=== PATIENT | female | born 1945 | race Caucasian/White ===

== ENCOUNTER 2019-02-01 16:45 | Inpatient (IN) | payer OTHER ==
[~2019-02-01] VITALS: Ht 172.7 cm; Wt 54.2 kg
[2019-02-01] MEDS ORDERED: CYMBALTA60 MG PO (16:54)
[2019-02-01] MEDS ORDERED: PROTONIX 20 MG20 MG PO (16:54)
[2019-02-01] MEDS ORDERED: BUSPIRONE HCL5 MG PO (16:54)
[2019-02-01] MEDS ORDERED: PRAVASTATIN SOD20 MG PO (16:55)
[2019-02-01 17:26] LABS: ABSOLUTE NEUTROPHILS 9.3 thou/uL (1.4-8.2); BASOPHILS 0.3 % (0.0-2.0); EOSINOPHILS 1.1 % (0.0-3.0); HEMATOCRIT 32.6 % (37.0-47.0); HEMOGLOBIN 11.2 gm/dL (12.0-15.0); LYMPHOCYTES 12.3 % (24.0-44.0); MCH 32.1 pg (26.0-34.0); MCHC 34.4 g/dL (28.0-37.0); MCV 93.5 fL (80.0-100.0); MONOCYTES 5.2 % (1.0-8.0); PLATELET COUNT 191 thou/uL (150-400); POLYS 81.1 % (36.0-66.0); RBC 3.49 mil/uL (4.20-5.00); WBC 11.5 thou/uL (4.0-11.0)
[2019-02-01 17:40] LABS: ALBUMIN 2.4 g/dL (3.4-5.0); ANION GAP 8 mmol/L (7-16); BUN 5 mg/dL (7-18); CALCIUM 8.3 mg/dL (8.5-10.1); CHLORIDE 87 mmol/L (98-107); CO2 32 mmol/L (21-32); CREATININE 0.6 mg/dL (0.6-1.0); GLUCOSE 124 mg/dL (74-106); LIPASE 96 U/L (73-393); MAGNESIUM 1.1 mg/dL (1.8-2.4); SGOT 37 U/L (15-37); SGPT 14 U/L (30-65); SODIUM 127 mmol/L (136-145); TOTAL BILIRUBIN 2.1 mg/dL (<0.1-1.0); TOTAL PROTEIN 6.8 g/dL (6.4-8.2); TROPONIN-I <0.06 ng/mL (<0.06)
[2019-02-01 17:44] LABS: POTASSIUM 2.1 mmol/L (3.5-5.1)
[2019-02-01 18:17] LABS: SALICYLATE 3.4 mg/dL (2.8-20.0)
[2019-02-01 18:18] LABS: URINE BILIRUBIN NEGATIVE (Negative); URINE BLOOD 3+ (Negative); URINE CLARITY CLEAR; URINE COLOR YELLOW; URINE GLUCOSE-RANDOM* NEGATIVE (Negative); URINE KETONES TRACE (Negative); URINE NITRITE-REFLEX NEGATIVE (Negative); URINE PROTEIN (DIPSTICK) TRACE (Negative); URINE UROBILINOGEN >= 8.0 E.U./dl (0.2-1.0)
[2019-02-01 18:24] LABS: URINE LEUKOCYTES-REFLEX 3+ (Negative)
[2019-02-01 18:26] LABS: AMP/METHAMP Negative (Negative); BARBITURATES Negative (Negative); BENZODIAZEPINES Negative (Negative); COCAINE Negative (Negative); METHADONE Negative (Negative); OPIATES Negative (Negative); PCP Negative (Negative)
[2019-02-01 18:32] LABS: BACTERIA-REFLEX 1-9 Few /HPF (None Seen); CASTS None Seen /LPF (None Seen); SQUAMOUS >10 Many /LPF (0-3); URINE RBC >20 Many /HPF (0-2); URINE WBC-REFLEX >25 Many /HPF (0-5)
[2019-02-01 18:33] LABS: AMORPHOUS URATES Many /LPF (None Seen); WBC CLUMPS Moderate (None Seen)
[2019-02-01 22:27] VITALS: BP 102/46
[2019-02-01 22:46] VITALS: BP 102/46
[2019-02-01 22:48] LABS: PHOSPHORUS 2.7 mg/dL (2.5-4.9)
[2019-02-01 22:51] LABS: FOLIC ACID 14.6 ng/mL (8.6-58.9)
--- NOTE | 2019-02-02 01:59 | NUR ---
PATIENT IS ALERT TO SELF PLACE TIME. PATIENT IS CIWA. PAITENT ON ROOM AIR. PATIENT IS INCONTIENT. PATIENT DENIES PAIN. PATIENT REPLACING ELETROLYTES. PATIENT IS RESTING COMFORTABLY IN BED. WCM. PATIENT IS PROGRESSING TO GOALS.
[2019-02-02 04:34] VITALS: BP 101/54
[2019-02-02 05:48] LABS: HEMATOCRIT 27.1 % (37.0-47.0); HEMOGLOBIN 9.4 gm/dL (12.0-15.0); MCHC 34.4 g/dL (28.0-37.0); MCV 95.8 fL (80.0-100.0); RBC 2.83 mil/uL (4.20-5.00); WBC 11.4 thou/uL (4.0-11.0)
[2019-02-02 05:55] LABS: CALCIUM 7.8 mg/dL (8.5-10.1); CREATININE 0.5 mg/dL (0.6-1.0)
[2019-02-02 05:57] LABS: POTASSIUM 2.4 mmol/L (3.5-5.1)
[2019-02-02 08:17] VITALS: BP 105/57
--- NOTE | 2019-02-02 09:46 | EKG ---
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
[2019-02-02 14:13] LABS: % SATURATION 88 % (20-39); IRON 82 ug/dL (50-170); TIBC 93 ug/dL (250-450)
[2019-02-02 14:17] LABS: PROTIME 10.2 Seconds (9.3-11.4)
[2019-02-02 15:40] VITALS: BP 99/51
--- NOTE | 2019-02-02 16:07 | NUR ---
ASSESSMENT: CM REVIEWED CHART. PT WAS ADMITTED WITH AMS. 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 IT WAS REPORTED THAT PATIENT DRINKS ABOUT A BOTTLE OF VODKA PER DAY. CM SPOKE WITH PTS ABILIOOA MARKIE WOODARD. SHE STATES PATIENT LIVES IN AN APT ALONE BUT MARKIE GOES OVER THE DAILY IF NOT MULTIPLE TIMES AND HAS OTHERS THAT GO WELL ABOUT 3X/DAY FOR 2 HRS A PIECE SO SHE STATES PATIENT IS NEVER HARDLY ALONE. SHE REPORTS PATIENT USES HER WHEELCHAIR AND NEVER REALLY LEAVES HER CHAIR AND THEY HELP ASSIST HER BECAUSE SHE IS SCARED SHE WILL FALL. SHE REPORTS PATIENT WEARS DEPENDS AND THEY HELP CHANGE HER/ASSIST WITH ADLS. PT HAS BEEN TO MULTIPLE SNF IN THE PAST SHE REPORTS INCLUDING [facility], [facility], AND [place] [facility] SHE STATES PATIENT IS NOT ALWAYS COMPLIANT AT FACILITIES AND HAS HAD HH IN THE PAST BUT NOT COMPLIANT WITH THEM AND USUALLY DOES NOT WANT THEM TO COME. CM DISCUSSED ROLE. DPOA FEELS PATIENT WOULD LIKELY BENEFIT FROM SNF STAY AND REPORTS PT IS USUALLY AGREEABLE FOR SNF. CM WILL CONTINUE TO FOLLOW AND SEE HOW PATIENT PROGRESSES THROUGH THE WEEKEND AND IF AMS CLEARS UP. CM WILL CONTIUNE TO FOLLOW.
[2019-02-02 16:46] LABS: ALBUMIN 1.9 g/dL (3.4-5.0); DIRECT BILIRUBIN 1.8 mg/dL (<0.1-0.3); TOTAL BILIRUBIN 2.1 mg/dL (<0.1-1.0); TOTAL PROTEIN 5.5 g/dL (6.4-8.2)
--- NOTE | 2019-02-02 18:36 | NUR ---
PATIENT CONT TO REST IN BED AT TIS TIME. RESPIRATIONS ARE NON LABORED. PLEASANT AND COOPERATIVE WITH CARE. INCONT. KEPT CLEAN AND DRY. WILL CONT WIHT PLAN OF CARE.
[2019-02-02 19:27] VITALS: BP 93/48
[2019-02-03 00:07] LABS: HAV IgM AB (ANTI-HAV IgM) Negative (Negative); HEPATITIS B SURFACE AG Negative (Negative); HEPATITIS C VIRUS AB 0.1 (0.0-0.9)
--- NOTE | 2019-02-03 02:07 | NUR ---
PATIENT IS ALERT TO SELF. PATIENT IS CONFUSED. PATIENT IS INCONTIENT. PATIENT YELLS OUT UNABLE TO USE CALL LIGHT. PATIENT IS PENDING PLACEMENT. PATIENT IS ROOM AIR. PATIENT DENIES PAIN. PATIENTS LBM WAS 6TH. PATIENT IS RESTING COMFORTABLY IN BED. PATIENT CAN TURN SELF. PATIENT IS PROGRESSING TO GOALS. WCM
[2019-02-03 05:04] VITALS: BP 98/47
[2019-02-03 06:39] LABS: CALCIUM 7.8 mg/dL (8.5-10.1); CREATININE 0.7 mg/dL (0.6-1.0); MAGNESIUM 1.7 mg/dL (1.8-2.4); PHOSPHORUS 1.4 mg/dL (2.5-4.9); POTASSIUM 3.1 mmol/L (3.5-5.1)
[2019-02-03 09:37] VITALS: BP 103/50
[2019-02-03 15:56] VITALS: BP 111/58
--- NOTE | 2019-02-03 17:30 | NUR ---
ALERT TO PERSON, CIWA 0-1, PREVIOUSLY CONFUSED TO DAY OF WEEK, YEAR. PT FEELING MILDLY ANXIOUS & REQUESTING CIGARETTE. NICOTINE PATCH REMAINS INTACT. SR, ROOM AIR, FEEDING SELF AND ALLOWS ASSIST WITH FEEDING, LARGE LOOSE STOOL THIS AM, INCONTINENT OF LARGE AMOUNTS DARK YELLOW URINE. DR. NEGRETE NOTIFIED OF ABNORMAL ELECTROLYTES- LOW K AND MAG. ELECTROLYTES REPLACED PER MED ORDERS.
[2019-02-03 19:00] VITALS: BP 100/53
[2019-02-04 03:26] VITALS: BP 141/79
[2019-02-04 05:20] LABS: HEMATOCRIT 27.7 % (37.0-47.0); HEMOGLOBIN 9.3 gm/dL (12.0-15.0); MCH 32.5 pg (26.0-34.0); MCHC 33.4 g/dL (28.0-37.0); MCV 97.3 fL (80.0-100.0); RBC 2.85 mil/uL (4.20-5.00); RDW 13.3 % (10.5-14.5)
[2019-02-04 05:46] LABS: ALBUMIN 1.9 g/dL (3.4-5.0); CALCIUM 8.4 mg/dL (8.5-10.1); CREATININE 0.7 mg/dL (0.6-1.0); MAGNESIUM 1.6 mg/dL (1.8-2.4); PHOSPHORUS 2.6 mg/dL (2.5-4.9); POTASSIUM 3.1 mmol/L (3.5-5.1); TOTAL BILIRUBIN 0.7 mg/dL (<0.1-1.0); TOTAL PROTEIN 5.2 g/dL (6.4-8.2)
--- NOTE | 2019-02-04 06:37 | NUR ---
PT A/0 X1. PT HAS SOME CONFUSION AND RESIDULES FROM PREVIOUS STROKE. Q8 CIWA'S. PT HAS BEEN INCONTINENT FOR BOTH BLADDER AND BOWEL. PLACED EXTERNAL FEMALE CATH TO REDUCE SKIN ISSUES. AT 0315 PT HEART ELEVATED, CALL PLACED TO SEGUN GELLER, RECEIVED ORDERS FOR EKG. EKG SHOWED SINUS TACH. RECEIVED ORDERS FOR 2.5MG METOPROLOL. GOOD RESULTS WITH HR DOWN BELOW 100 BPM. HOURLY ROUNDING.
[2019-02-04 07:35] VITALS: BP 120/63
--- NOTE | 2019-02-04 11:22 | EKG ---
[address] [address] ELECTROCARDIOGRAM REPORT Name: REBECAC LAZO Room #: 361-P ADM IN M.R.#: [id number] Admission: 02/01/19 Attend Phys: Earle Back MD Discharge: Date of : 45 Report #: [id number] THIS REPORT FOR: //name// [facility] Test Date: 2019-02-04 Test Time: 03:18:10 Pat Name: REBECCA LAZO Department: Room: 361 Gender: F [employer] Spacelift: [id number] : 1945 Requested By: Carolyn Singh Order Number: [id number] MD: Good Abdullahi Measurements Intervals [place] Rate: 139 P: 109 [place]: 92 QRS: -8 QRSD: 137 T: 31 QT: 328 QTc: 499 Interpretive Statements Sinus tachycardia Right bundle branch block Inferior infarct, old Compared to ECG 02/01/2019 17:33:13 Sinus rhythm no longer present Myocardial infarct finding still present Electronically Signed On 02-04-2019 11:22:03 PATENT SOLICITOR by Good Abdullahi [email or web address] <ELECTRONICALLY SIGNED> By: Good Abdullahi MD 02/04/19 1122 Good Abdullahi MD /EPI
[2019-02-04 15:37] VITALS: BP 127/70
--- NOTE | 2019-02-04 17:32 | NUR ---
pt knows her name , pt can follow some commands, pt is confused at time, pt is continuing iv abx , iv fluid and potassuim and magnesium replacement, pt's vs are stable at this time, pt needs help ADL and change position.
[2019-02-04 18:08] LABS: MITOCHONDRIAL ANTIBODY <20.0 Units (0.0-20.0); SMOOTH MUSCLE ANTIBODY 35 Units (0-19)
[2019-02-04 19:09] VITALS: BP 119/61
[2019-02-05 03:37] VITALS: BP 129/67
[2019-02-05 05:21] LABS: ABSOLUTE NEUTROPHILS 9.9 thou/uL (1.4-8.2); BASOPHILS 0.6 % (0.0-2.0); EOSINOPHILS 3.1 % (0.0-3.0); HEMATOCRIT 28.1 % (37.0-47.0); HEMOGLOBIN 9.4 gm/dL (12.0-15.0); LYMPHOCYTES 12.2 % (24.0-44.0); MCH 32.6 pg (26.0-34.0); MCHC 33.4 g/dL (28.0-37.0); MCV 97.6 fL (80.0-100.0); MONOCYTES 4.9 % (1.0-8.0); PLATELET COUNT 220 thou/uL (150-400); POLYS 79.2 % (36.0-66.0); RBC 2.87 mil/uL (4.20-5.00); RDW 13.7 % (10.5-14.5); WBC 12.5 thou/uL (4.0-11.0)
[2019-02-05 05:26] LABS: ALBUMIN 1.9 g/dL (3.4-5.0); CALCIUM 7.8 mg/dL (8.5-10.1); CREATININE 0.6 mg/dL (0.6-1.0); MAGNESIUM 1.6 mg/dL (1.8-2.4); POTASSIUM 3.2 mmol/L (3.5-5.1); TOTAL BILIRUBIN 0.5 mg/dL (<0.1-1.0); TOTAL PROTEIN 5.7 g/dL (6.4-8.2)
--- NOTE | 2019-02-05 06:27 | NUR ---
PT A/0 TO SELF. PT UNDERSTANDS SHE IS HUNGRY BUT HAS NO CONCEPT FOR TIME, GAVE PT MULTIPLE CRACKERS AND CHIPS WHICH SHE CAN FEED HER SELF. SHE YELLS OUT FREQUENTLY WANTING TO BE PULLED UP IN BED WHEN SHE IS ALREADY AT THE MAX DISTANCE BEFORE HAVING HER HEAD HANG OVER THE TOP EDGE. URINE OUTPUT WAS 1600+ VIA EXTERNAL CATH. PT TAKES PILLS WHOLE. VSS, AND NO ISSUES WITH HEART RATE OVERNIGHT. HOURLY ROUNDING.
[2019-02-05 07:54] VITALS: BP 132/75
--- NOTE | 2019-02-05 12:52 | NUR ---
pt is confused , but pt knows her name and she can follow some conmmands, pt is continuing iv fluid and iv abx , she needs help ADL and meals, we encourage pt to eat and drink, pt's vs are stable at this time.
[2019-02-05 13:07] LABS: CERULOPLASMIN 24.9 mg/dL (19.0-39.0)
[2019-02-05 15:37] VITALS: BP 117/64
--- NOTE | 2019-02-05 15:51 | NUR ---
RN has caled to report pt's abnormal LAB results, new order received, pt has kcl 40meq and magenesium sulfate 4g iv running over 4 HR for low potassium and low magnesium.
--- NOTE | 2019-02-05 16:01 | NUR ---
ON-GOING ASSESSMENT: CM REVIEWED CHART AND MET WITH PATIENT AT THE BEDSIDE. PT STILL APPEARS ENCEPHALOPATHIC. CM DISCUSSED SNF WITH PATIENT AND SHE STATED SHE DID NOT REALLY WANT TO GO. CM REACHED OUT TO PATIENTS DPOA DUE TO PATIENTS CONFUSION AND DISCUSSED SNF AND SHE STATES PATIENT WOULD BENEFIT FROM IT. SHE WANTED REFERRAL SENT TO [facility] WHERE SHE HAD BEEN BEFORE. CM FAXED REFERRALS AND WAITING TO HEAR BACK.
[2019-02-05 19:31] VITALS: BP 129/71
[2019-02-06 03:48] VITALS: BP 102/60
--- NOTE | 2019-02-06 04:53 | NUR ---
RESTING BETTER TONIGHT.SHE DRINKS WATER VERY WELL. DENIES PAIN. YELLS WHEN SHE SEES ANYONE GO PAST HER DOOR. CAREPLAN REVIEWED.
[2019-02-06 06:05] LABS: CALCIUM 8.5 mg/dL (8.5-10.1); CREATININE 0.6 mg/dL (0.6-1.0); MAGNESIUM 2.2 mg/dL (1.8-2.4); POTASSIUM 4.3 mmol/L (3.5-5.1)
[2019-02-06 07:15] VITALS: BP 126/71
--- NOTE | 2019-02-06 10:21 | NUR ---
ON-GOING ASSESSMENT: CM ATTEMPTED TO FOLLOW UP WITH [facility] THIS AM BUT HAVE NO RECEIVED A RESPONSE AT THIS TIME. CM SPOKE WITH AIDE [facility] WHO STATES THEY CANNOT ACCEPT PT AT THIS TIME DUE TO ALCOHOL ABUSE. CM FAXED REFERRAL TO [facility] FOR [facility] TO REVIEW ([facility] HAS NO PREFERENCE AT THIS TIME).
--- NOTE | 2019-02-06 13:05 | NUR ---
pt's assessment has done , PT knows her name, pt can follow some conmmands, but pt is confused, pt is continuing iv fluid, PT's lab results have improved, pt's potassium and magnesium results are normal today, pt's vs are stable, pt needs help meals and ADL.
[2019-02-06 15:45] VITALS: BP 122/63
--- NOTE | 2019-02-06 15:53 | NUR ---
on-going assessment: [facility] CAME TO DO ON-SITE EVAL WITH PATIENT AND SPOKE TO PATIENTS DPOA AND THEY WILL ACCEPT THE PATIENT FOR SNF. NOMAN NOTIFIED ATTENDING AND HE STATES HE WILL BE BACK AT THE HOSPITAL THIS EVENING AND CAN PUT IN DISCHARGE ORDERS THEN FOR A LATER DISCHARGE. CM NOTIFIED BEDSIDE RN. CM ORDERED CHART COPY. CONTACT FOR [facility] FOR REPORT:[phone], ALSO PLEASE FAX DISCHARGE ORDERS TO [facility] FAX:[phone]. CM NOTIFIED CARLOSJAY MCKEONA THAT PATIENT WILL HAVE ORDERS THIS EVENING AND WILL NEED STRETCHER FOR TRANSPORTATION. SHE IS ARRANGING TRANSPORT FOR AROUND 1830. CM NOTIFIED BEDSIDE RN WELL PATIENTS DPOA.
[2019-02-06] MEDS ORDERED: LACTULOSE20 GM/30 M PO (16:53)
[2019-02-06] MEDS ORDERED: VITAMIN B-1100 M2 PO (16:53)
[2019-02-06] MEDS ORDERED: MAGOX 400400 MG PO (16:53)
[2019-02-06] MEDS ORDERED: POTASSIUM20 PO (16:53)
[2019-02-06] MEDS ORDERED: PHOSPHA 250 NE250 MG PO (16:53)
[2019-02-06] MEDS ORDERED: CEFUROXIME250 MG PO (16:53)
[2019-02-06] MEDS ORDERED: PRENATAL PO (16:53)
--- NOTE | 2019-02-06 17:39 | NUR ---
RN has received order , pt will DC TO [facility] today,RN has giving report , pt's family has notifed pt's discharge today. pt's vs are stable at this time.
== END 2019-02-06 18:53 | DRG 432 ==
LOC: ER 16:45 → EROBS 20:23 → 3W 20:23
PROVIDERS: Nurse Practitioner; Nurse Practitioner Family; Physician Assistant; Specialist; ADMIT Internal Medicine
DX: K70.40 Alcoholic hepatic failure without coma (principal); G92 Toxic encephalopathy; E43 Unspecified severe protein-calorie malnutrition; N39.0 Urinary tract infection, site not specified; E87.1 Hypo-osmolality and hyponatremia; F10.239 Alcohol dependence with withdrawal, unspecified; Z68.1 Body mass index [BMI] 19.9 or less, adult; E51.2 Wernicke's encephalopathy; K70.0 Alcoholic fatty liver; E87.6 Hypokalemia; F17.210 Nicotine dependence, cigarettes, uncomplicated; G31.2 Degeneration of nervous system due to alcohol; I45.10 Unspecified right bundle-branch block; E83.42 Hypomagnesemia; F41.9 Anxiety disorder, unspecified; R79.89 Other specified abnormal findings of blood chemistry; E78.5 Hyperlipidemia, unspecified; F32.9 Major depressive disorder, single episode, unspecified; K21.9 Gastro-esophageal reflux disease without esophagitis; B96.20 Unspecified Escherichia coli [E. coli] as the cause of diseases classified elsewhere; Z88.8 Allergy status to other drugs, medicaments and biological substances; I25.2 Old myocardial infarction; Z86.73 Personal history of transient ischemic attack (TIA), and cerebral infarction without residual deficits; Z79.899 Other long term (current) drug therapy
CPT/HCPCS: 10080; 10879

== ENCOUNTER 2020-05-23 10:08 | Emergency (ER) | payer OTHER ==
[~2020-05-23] VITALS: Ht 160 cm; Wt 68.0 kg
[~2020-05-23 10:08] MED LIST: BUSPIRONE HCL5 MG PO; CEFUROXIME250 MG PO; CYMBALTA60 MG PO; LACTULOSE20 GM/30 M PO; MAGOX 400400 MG PO; PHOSPHA 250 NE250 MG PO; POTASSIUM20 PO; PRAVASTATIN SOD20 MG PO; PRENATAL PO; PROTONIX 20 MG20 MG PO; VITAMIN B-1100 M2 PO
[2020-05-23 10:39] LABS: ABSOLUTE NEUTROPHILS 2.9 thou/uL (1.4-8.2); BASOPHILS 1.4 % (0.0-2.0); EOSINOPHILS 3.6 % (0.0-3.0); HEMATOCRIT 36.7 % (37.0-47.0); HEMOGLOBIN 11.6 gm/dL (12.0-15.0); LYMPHOCYTES 30.1 % (24.0-44.0); MCH 23.4 pg (26.0-34.0); MCHC 31.5 g/dL (28.0-37.0); MCV 74.2 fL (80.0-100.0); MONOCYTES 8.2 % (1.0-8.0); PLATELET COUNT 207 thou/uL (150-400); POLYS 56.7 % (36.0-66.0); RBC 4.95 mil/uL (4.20-5.00); RDW 19.5 % (10.5-14.5); WBC 5.2 thou/uL (4.0-11.0)
[2020-05-23 10:48] LABS: CALCIUM 8.3 mg/dL (8.5-10.1); CREATININE 0.8 mg/dL (0.6-1.0)
[2020-05-23 10:54] LABS: ALBUMIN 2.9 g/dL (3.4-5.0); TOTAL BILIRUBIN 0.4 mg/dL (0.2-1.0); TOTAL PROTEIN 7.4 g/dL (6.4-8.2)
[2020-05-23 12:07] LABS: HYPOCHROMASIA 1+
[2020-05-23 12:08] LABS: ANISOCYTOSIS 2+; MICROCYTES 1+
[2020-05-23 12:22] VITALS: BP 92/46
== END 2020-05-23 12:38 | disposition home or self-care (01) ==
LOC: ER 10:08
PROVIDERS: Emergency Medicine
DX: F10.129 Alcohol abuse with intoxication, unspecified (principal); I10 Essential (primary) hypertension; E87.6 Hypokalemia; F17.210 Nicotine dependence, cigarettes, uncomplicated; Z79.899 Other long term (current) drug therapy; Z88.8 Allergy status to other drugs, medicaments and biological substances; Y90.6 Blood alcohol level of 120-199 mg/100 ml